=== PATIENT | male | born 1990 | race Caucasian/White ===

== ENCOUNTER 2018-07-21 07:59 | Emergency (ER) | payer MEDICAID ==
[2018-07-21] MEDS ORDERED: NS 1,000 ML IV ONE ×2 (08:14)
[2018-07-21 08:30] LABS: PLATELET COUNT 163 10^3/uL (150-400)
--- NOTE | 2018-07-21 08:32 | EDPHY ---
H & P Time Seen by Provider: 07/21/18 08:14 HPI/ROS: HPI Fainted while going to the bathroom. 27-year-old male by private vehicle with parents. The patient has been out drinking alcohol with his friends last night. He reports that early this morning he woke up, he went up several stairs, was standing at the toilet and fainted. He fell to the ground. He did not hit his head. He denies any neck pain. He thinks he was only unconscious for less than a minute. There was no seizure activity reported by his parents. He denies any associated chest pain, palpitations, headache, shortness of breath, loss of sensation or weakness in his extremities. No other complaints any is feeling fine now. ROS: Constitutional: No fever, no chills. As above. Eyes: No discharge. No changes in vision. ENT: No sore throat. No nasal congestion or rhinorrhea. Respiratory: No cough. No shortness of breath. Cardiac: No chest pain, no palpitations. Gastrointestinal: No abdominal pain, no vomiting, no diarrhea. Genitourinary: No hematuria. No dysuria or increased frequency with urination. Musculoskeletal: No back pain. No neck pain. No extremity pain. Skin: No rashes. Neurological: No headache. No focal weakness or altered sensation. Past medical history: Heart murmur. No other significant past medical history. Social history: Nonsmoker. Here with his parents. Lives with his parents. Was out drinking with friends last night. Physical Exam: General Appearance: Alert, no distress. Odor of alcohol on his breath. This patient is responding to questions appropriately and in full sentences. This patient appears well-hydrated and well-nourished. Head: Normocephalic atraumatic. Eyes: Pupils equal and round and reactive to light at 3-2 mm. no pallor or injection. No lid edema, erythema or injection. No photophobia. No nystagmus. ENT, Mouth: Mucous membranes are moist. The pharyngeal tissues are unremarkable. No edema or swelling. No asymmetry suggestive of abscess. No erythema or exudates. No tongue lacerations or abrasions. Respiratory: There are no retractions, lungs are clear to auscultation with good air movement bilaterally. Cardiovascular: Regular rate and rhythm. No murmur. Gastrointestinal: Abdomen is soft and nontender, no masses, bowel sounds normal. No focal tenderness at McBurney's point. No Guzmán sign. Neurological: Motor sensory function is grossly intact. Cranial nerves are normal. Gait is normal. Skin: Warm and dry, no rashes. Musculoskeletal: Neck is supple and nontender. No midline cervical, thoracic, lumbar tenderness on palpation. Extremities are symmetrical. All joints range without pain or impingement. Psychiatric: No agitation. No depression. Database: EKG: EKG time is 8:07 a.m.; EKG shows a narrow complex normal sinus rhythm with a ventricular rate of 61. Diffuse J-point elevation indicative of early repolarization pattern. The RI, QRS, QT intervals are within normal limits. There are no ST-T wave changes indicative of ischemic or injury pattern. No evidence of right heart strain. No evidence of WPW, Brugada syndrome, hypertrophic cardiomyopathy. Interpreted by me. Imaging: Procedures: Emergency department course: Triage vital signs reviewed and are normal. No evidence of traumatic injury on exam. EKG is unremarkable. IV was placed by EMS. He will be given 1-2 L of IV normal saline in the emergency department. Blood work will be checked to evaluate for anemia or electrolyte abnormality. 8:50 a.m., patient re-evaluated, resting comfortably at this time. His vital signs have remained normal through his emergency department course. He has been up and ambulatory to the bathroom under his own power. He feels comfortable being discharged with his parents at this time. Follow-up and return to emergency department precautions reviewed with all of them. All of his questions were answered. The patient was discharged home in good condition. Differential Diagnosis: The differential diagnosis on this patient includes but is not limited to vasovagal syncope, noncardiac syncope, dehydration, alcohol intoxication. Arrhythmia, subarachnoid hemorrhage, pulmonary embolism unlikely. This represents a partial list of diagnoses considered. These considerations are based on history, physical exam, past history, reassessment and diagnostic testing. Smoking Status: Never smoked Constitutional: Initial Vital Signs Temperature (C) 36.4 C 07/21/18 07:59 Heart Rate 65 07/21/18 07:59 Respiratory Rate 16 07/21/18 07:59 Blood Pressure 120/70 07/21/18 07:59 O2 Sat (%) 95 07/21/18 07:59 O2 Delivery Mode Room Air Allergies/Adverse Reactions: bee venom protein (honey bee) Allergy (Verified 07/21/18 08:08) Home Medications: Medication Instructions Recorded NK [No Known Home Meds] 07/21/18 Medical Decision Making - Data Points Laboratory Results: 07/21/18 07/21/18 08:20 08:20 WBC Pending RBC Pending Hgb Pending Hct Pending MCV Pending MCH Pending MCHC Pending RDW Pending Plt Count Pending MPV Pending Neut % (Auto) Pending Lymph % (Auto) Pending [place] % (Auto) Pending Eos % (Auto) Pending Baso % (Auto) Pending Nucleat RBC Rel Count Pending Absolute Neuts (auto) Pending Absolute Lymphs (auto) Pending Absolute Monos (auto) Pending Absolute Eos (auto) Pending Absolute Basos (auto) Pending Absolute Nucleated RBC Pending Immature Gran % Pending Immature Gran # Pending Sodium Pending Potassium Pending Chloride Pending Carbon Dioxide Pending Anion Gap Pending BUN Pending Creatinine Pending Estimated GFR Pending Glucose Pending Calcium Pending Ethyl Alcohol Pending Medications Given: Discontinued Medications Sodium Chloride (Ns) 1,000 mls @ 0 mls/hr IV EDNOW ONE; Wide Open PRN Reason: Protocol Stop: 07/21/18 08:15 Last Admin: 07/21/18 08:26 Dose: 1,000 mls Sodium Chloride (Ns) 1,000 mls @ 0 mls/hr IV EDNOW ONE; Wide Open PRN Reason: Protocol Stop: 07/21/18 08:15 Last Admin: 07/21/18 08:26 Dose: 1,000 mls Departure - Departure Disposition: Home, Routine, Self-Care Clinical Impression: Syncope Condition: Good Instructions: Syncope (ED) Additional Instructions: Read and follow provided instructions. Follow-up with your primary care physician on Monday for re-evaluation as discussed. Keep well hydrated. Return to the emergency department for lightheadedness fainting, chest pain, shortness of breath, worsening headache or other serious concerns. Referrals: Patient,NotPresent [Primary Care Provider] - As per Instructions
[2018-07-21 09:23] VITALS: BP 107/63
--- NOTE | 2018-07-21 09:24 | CPEKG ---
Test Reason : OPEN Blood Pressure : / mmHG Vent. Rate : 061 BPM Atrial Rate : 061 BPM P-R Int : 178 ms QRS Dur : 085 ms QT Int : 445 ms P-R-T Axes : 071 058 052 degrees QTc Int : [address] elevation suggests acute pericarditis Confirmed by Debby Sanchez ([id number] on 07/21/2018 9:23:23 AM Referred By: Confirmed By:Debby Sanchez
== END 2018-07-21 09:22 | disposition home or self-care (01) ==
LOC: EDUNIT# → EDBD
DX: R55 Syncope and collapse (principal); E86.9 Volume depletion, unspecified
CPT/HCPCS: G0480